=== PATIENT | male | born 1975 | race Hispanic/Latino ===

== ENCOUNTER 2017-11-13 15:18 | Emergency (ER) | payer OTHER, SELFPAY ==
[2017-11-13] MEDS ORDERED: Ondansetron HCl/PF 4 MG/2 ML Vial ONE (17:08)
[2017-11-13] MEDS ORDERED: Acetaminophen 500 MG TAB ONE (17:08)
[2017-11-13] MEDS ORDERED: Ibuprofen 800 MG TAB ONE (17:49)
[2017-11-13 17:55] LABS: Hemoglobin 14.8 g/dL (14.0-18.0); Mean Corpuscular HGB CONC 33.2 g/dL (32.0-36.0); Mean Corpuscular Hemoglobin 31.5 pg (27.0-31.0); Mean Platelet Volume 7.2 fL (7.4-10.4); Platelet Count 241 thou/uL (130-400); RBC Distribution Width 12.5 % (11.5-14.5); White Blood Cell (WBC) Count 10.9 thou/uL (4.8-10.8)
[2017-11-13 18:05] LABS: ALT (SGPT) 22 U/L (8-55); AST (SGOT) 33 U/L (5-34); Albumin 4.2 g/dL (3.5-5.0); Alkaline Phosphatase 83 U/L (40-150); Anion Gap 15 mmol/L (10-20); BUN (Urea Nitrogen) 12 mg/dL (8.9-20.6); Bilirubin, Total 0.4 mg/dL (0.2-1.2); Calc. Creatinine Clearance 0 mL/min (70-130); Calcium 9.4 mg/dL (7.8-10.44); Carbon Dioxide 22 mmol/L (22-29); Chloride 101 mmol/L (98-107); Estimated GFR-MDRD Greater than 90; Globulin 3.3 g/dL (2.4-3.5); Glucose 108 mg/dL (70-105); Potassium 3.9 mmol/L (3.5-5.1); Protein, Total 7.5 g/dL (6.0-8.3); Sodium 134 mmol/L (136-145)
[2017-11-13 18:10] LABS: Band 25 % (5-11); Lymphocytes 6 % (21-51); MDiff Complete? YES; Monocytes 5 % (0-10); Neutrophil 61 % (42-75); PLT Morphology Comment Appears Adequate; RBC Morphology Normal; Reactive Lymphocytes 3 % (0-10)
--- NOTE | 2017-11-13 18:19 | RAD ---
AP CHEST: Indication: Nausea, vomiting, body aches, fever. Comparison: 04-30-17 FINDINGS: There is a focus of airspace consolidation adjacent to the left heart border suspicious for lingular pneumonia. Right lung is clear. No acute osseous abnormality is evident. IMPRESSION: Findings very suspicious for lingular pneumonia. Recommend radiographic follow up to resolution. POS: [facility]
== END 2017-11-13 19:59 | disposition home or self-care (01) ==
LOC: ERS 15:18
DX: J18.9 Pneumonia, unspecified organism (principal); E11.9 Type 2 diabetes mellitus without complications; F17.210 Nicotine dependence, cigarettes, uncomplicated
CPT/HCPCS: 36415; 71045; 80053; 83605; 85025; 87040; 87804; 94640; 96361; 96374; 96375; 99406; J0696; J2405; J7620

== ENCOUNTER 2018-10-26 22:43 | Emergency (ER) | payer SELFPAY | END 2018-10-27 00:03 | LOC: ERS 22:43 | DX: Z02.89 Encounter for other administrative examinations (principal); F10.129 Alcohol abuse with intoxication, unspecified; E11.9 Type 2 diabetes mellitus without complications; F41.9 Anxiety disorder, unspecified; F32.9 Major depressive disorder, single episode, unspecified; F17.210 Nicotine dependence, cigarettes, uncomplicated | CPT/HCPCS: 99283 ==